=== PATIENT | male | born 1965 | race Caucasian/White ===

== ENCOUNTER 2016-04-18 06:18 | Inpatient (IN) | payer BC ==
[2016-04-17 10:31] VITALS: BMI 28.5
[2016-04-18] VITALS (23 sets, daily range): BP systolic 115–162; BP diastolic 62–95; PULSE 59–96; RESP 6–22; Ht 167.6 cm; Wt 78.3 kg
[~2016-04-18] VITALS: Ht 167.6 cm; Wt 78.3 kg
--- NOTE | 2016-04-18 06:48 | HPN ---
Date/Time of Note Date/Time of Note DATE: 04/18/16 TIME: 06:48 Interval H&P Admission Note Pt. seen H&P reviewed: No system changes CARMEN GANDARA MD Apr 18, 2016 06:48
[2016-04-18] MEDS ORDERED: METF-382 PO (07:20)
[2016-04-18] MEDS ORDERED: OXYC-209 PO (07:20)
[2016-04-18] MEDS ORDERED: DOXY-17 PO (07:20)
[2016-04-18] MEDS ORDERED: SOD CHLORIDE 0.9% 100 ML, TRANEXAMIC ACID 3,000 MG IRR ONE ×2 (07:30)
[2016-04-18] MEDS ORDERED: CEFAZOLIN 2 GM/50 ML (PMX) 50 ML IVPB ONE (07:30)
[2016-04-18] MEDS ORDERED: TRANEXAMIC ACID 1,000 MG in SOD CHLORIDE 0.9% 100 ML IVPB ONE (07:30)
[2016-04-18] MEDS ORDERED: traMADol 50 MG TAB PO ONE (07:30)
[2016-04-18] MEDS ORDERED: GABAPENTIN 300 MG CAP PO ONE (07:30)
[2016-04-18] MEDS ORDERED: DEXAMETHASONE 1 MG TAB PO ONE (07:30)
[2016-04-18] MEDS ORDERED: oxyCODONE (CR) 10 MG TAB [oxyCONTIN] PO ONE (07:30)
[2016-04-18] MEDS ORDERED: POLYMYXIN/BACITRACIN 1L IRRIG ONE (08:36)
[2016-04-18] MEDS ORDERED: BUPIVACAINE 0.5%/EPI (SDV) 30 ML INJ ONE (08:36)
[2016-04-18] MEDS ORDERED: THROMBIN 5000 UNIT VIAL ONE (08:36)
[2016-04-18] MEDS ORDERED: CA CHLORIDE 10% 10 ML SYRINGE ONE (08:37)
[2016-04-18] MEDS ORDERED: morphine SULFATE/PF (10 MG/10 ML) INJ ONE (09:17)
[2016-04-18] MEDS ORDERED: MIDAZOLAM 1 MG/ML 2 ML INJ ONE (09:17)
[2016-04-18] MEDS: BUPIVACAINE 0.5% (SDV) 30 ML, morphine SULFATE (PF) 8 MG, EPINEPHrine 0.3 MG, KETOROLAC... IRR SCH ×14 (09:19→10:03)
[2016-04-18] MEDS ORDERED: hydrALAzine 20 MG INJ ONE (10:16)
[2016-04-18] MEDS ORDERED: morphine 10 MG INJ ONE ×2 (10:27→11:17)
[2016-04-18] MEDS ORDERED: FENTAnyl 50 MCG/ML VIAL IV PRN (10:30)
[2016-04-18] MEDS ORDERED: NALOXONE (0.4 MG/ML) INJ IV PRN (10:30)
[2016-04-18] MEDS ORDERED: DIPHENHYDRAMINE 50 MG INJ IV PRN ×2 (10:30→12:00)
[2016-04-18] MEDS ORDERED: MEPERIDINE 25 MG INJ IV PRN (10:30)
[2016-04-18] MEDS ORDERED: HYDROmorphONE (0.2 MG/ML) 10ML SYG IV PRN ×2 (10:30)
[2016-04-18] MEDS ORDERED: ONDANSETRON 4 MG INJ IV PRN ×2 (10:30→12:00)
[2016-04-18] MEDS ORDERED: LIDOCAINE 2% (SDV) 5 ML INJ ONE (11:50)
[2016-04-18] MEDS ORDERED: PROPOFOL 20 ML ONE (11:50)
[2016-04-18] MEDS ORDERED: ROCURONIUM 50 MG INJ ONE (11:50)
[2016-04-18] MEDS ORDERED: ONDANSETRON 4 MG INJ ONE (11:51)
[2016-04-18] MEDS ORDERED: OXYCODONE/ACETAMINOPHEN (5/325) TAB PO PRN (12:00)
[2016-04-18] MEDS ORDERED: MAGNESIUM HYDROXIDE 30ML CUP PO PRN (12:00)
[2016-04-18] MEDS ORDERED: TRANEXAMIC ACID 1,000 MG in SOD CHLORIDE 0.9% 100 ML IV ONE (12:00)
[2016-04-18] MEDS ORDERED: morphine 4 MG/ML VIAL IV PRN (12:00)
[2016-04-18] MEDS ORDERED: KETOROLAC 15 MG INJ IV PRN (12:00)
[2016-04-18] MEDS ORDERED: ACETAMINOPHEN 500 MG TAB PO PRN (12:00)
[2016-04-18] MEDS ORDERED: morphine 2 MG INJ IV PRN (12:00)
[2016-04-18] MEDS ORDERED: ZOLPIDEM 5 MG TAB PO PRN (12:00)
[2016-04-18] MEDS ORDERED: BETHANECHOL 25 MG TAB PO PRN (12:00)
--- NOTE | 2016-04-18 12:16 | PDOCDIS ---
Discharge Instructions DIAGNOSIS Discharge Diagnosis: HIp arthritis CONDITION Patient Condition: Good HOME CARE INSTRUCTIONS: Diet Instructions: Regular ACTIVITY: Activity Restrictions: Slowly Increase Activity Keep Limb Elevated Bathing Restrictions: Shower FOLLOW UP/APPOINTMENTS Appointments 2 weeks SCHOOL/WORK RELEASE May return to School/Work with: With Restrictions School/Work Release Comment: No extension for six weeks CARMEN GANDARA MD Apr 18, 2016 12:16
--- NOTE | 2016-04-18 12:31 | RADRPT ---
PROCEDURE: Pelvis x-ray CLINICAL INDICATION: S/p Total hip replacement TECHNIQUE: Single AP view of the pelvis performed. COMPARISON: None FINDINGS: Intact old right hip prosthesis in anatomic alignment. Normal articulation of the femoral S10 as pr osthetic components. Intact acetabular support screw without lucency surrounding the screw to sugge st loosening or osteolysis. The left hip, pelvis, and sacrum are intact. No soft tissue abnormalit y. IMPRESSION: Intact right total hip prosthesis with anatomic alignment. No evidence of hardware failure or dislo cation. RPTAT:AAJJ Physician Jacklyn Date Time Electronically viewed and signed by Physician Jacklyn on 04/18/2016 12:31 CARLOS/
[2016-04-18 12:40] LABS: BASOPHILS % 0.1 % (0.0-2.0); HEMATOCRIT 39.2 % (42.0-52.0); HEMOGLOBIN 13.1 g/dl (14.0-18.0); LYMPHOCYTES # 1.4 10^3/ul (0.8-2.9); LYMPHOCYTES % 6.7 % (15.0-51.0); MEAN CORPUSCULAR HEMOGLOBIN 30.3 pg (29.0-33.0); MEAN CORPUSCULAR HGB CONC 33.5 g/dl (32.0-37.0); MEAN CORPUSCULAR VOLUME 90.5 fl (82.0-101.0); MEAN PLATELET VOLUME 8.2 fl (7.4-10.4); MONOCYTE # 0.6 10^3/ul (0.3-0.9); MONOCYTES % 2.9 % (0.0-11.0); NEUTROPHILS % 90.3 % (39.0-77.0); PLATELET COUNT 292 10^3/UL (140-440); RED BLOOD COUNT 4.33 10^6/ul (4.70-6.10); RED CELL DISTRIBUTION WIDTH 13.2 % (11.5-14.5)
--- NOTE | 2016-04-18 12:48 | RADRPT ---
PROCEDURE: Intraoperative imaging of the right hip with fluoroscopy. CLINICAL INDICATION: Right hip pain. Intraoperative. TECHNIQUE: 7 images of the right hip were obtained in the operating room with an image intensifier . No radiologist was in attendance. 0.5 of fluoroscopy time was used. COMPARISON: No prior study is available for comparison. FINDINGS: Images demonstrate placement of a total right hip arthroplasty. IMPRESSION: 1. Satisfactory intraoperative imaging of the right hip. RPTAT: QQ .Agustin Dennis MD, MD Date Time Electronically viewed and signed by .Agustin Dennis MD, MD on 04/18/2016 12:48 .R/
[2016-04-18 12:49] LABS: CONDITION 1; LH ANALYZER COMMENTS 1; SUSPECT 1
[2016-04-18] MEDS: DEXAMETHASONE 2 MG TAB PO SCH ×3 (12:57→23:15)
[2016-04-18] MEDS: LACTATED RINGER'S 1,000 ML IV SCH ×2 (13:34→21:42)
--- NOTE | 2016-04-18 13:49 | OPR ---
DATE OF OPERATION: 04/18/2016 PREOPERATIVE DIAGNOSIS: Right hip primary osteoarthritis. POSTOPERATIVE DIAGNOSIS: Right hip primary osteoarthritis. OPERATION PERFORMED: Right total hip arthroplasty. SURGEON: Carmen Mcnamara MD APPLICATION SPEC: Jethro Bustillos MD. [employer] Operator surgeon, Jethro Bustillos MD, was asked to be present at my request as a result of significan t surgical complexity associated with this procedure, including positioning of the extremity, manipu lation and protection of the neurovascular structures. In my opinion, the assistance offered by a [facility] sports medicine[facility] technical support technician is insufficient and Dr. Bustillos should be compensated for his time. PROCEDURE IN DETAIL: Following administration of general anesthesia supplemented with a spinal anes thetic, the patient was placed supine on the standard table. Fluoroscopic imaging was obtained to o btain preliminary information with respect to limb length. Sterile prep and drape was then undertaken. A lateral incision then exposed the tensor. The tensor muscle was retracted laterally. The capsule and the vasculature were then ablated followed by a lo ngitudinal capsulotomy. The joint was then evaluated. Severe arthritis was noted. The femoral cu t was made in the appropriate degree of version and inclination. The acetabulum was exposed. Peripheral osteophytes were removed. Capsulectomy was completed and th e acetabulum was reamed up to the 55 mm size. A 56 mm DePuy [place] cup was then implanted with a 35 mm screw. Solid fixation was obtained. A standard liner was implanted. Attention was then directed back to the femur. The femoral shaft was reamed up to the 11 mm size. An 11 mm DePuy [place] component was then implanted with a standard neck and a +5 zirconium head. Ra diographs revealed about a 2 mm limb length discrepancy with the cup being at approximately 42 degre es of abduction and 21 degrees of anteversion. The hip was taken through a full range of motion wit h no instability. The joint was thoroughly irrigated, closed in layers. A Prineo dressing was appl ied for the final layer. The patient was then awakened, transported to recovery in stable condition . Estimated blood loss for this procedure was 400 mL. Postoperative x-rays will be obtained in the recovery room, as well as a H and H will be obtained in the recovery room. Dictated By: CARMEN DE LA FUENTE/NTS Conf#: [id number] [facility]#: [id number]
[2016-04-18] MEDS: CEFAZOLIN 1 GM/50 ML (PMX) 50 ML IVPB SCH ×2 (15:47→23:15)
[2016-04-18] MEDS: metFORMIN 500 MG TAB PO SCH (17:30)
[2016-04-18] MEDS: SENNA/DOCUSATE NA (8.6MG/50MG) TAB PO SCH (20:19)
[2016-04-18] MEDS ORDERED: GABAPENTIN 300 MG CAP PO SCH (21:00)
[2016-04-18] MEDS: OXYCODONE/ACETAMINOPHEN (5/325) TAB PO PRN (23:16)
[2016-04-19] MEDS: DEXAMETHASONE 2 MG TAB PO SCH (04:57)
[2016-04-19] MEDS: OXYCODONE/ACETAMINOPHEN (5/325) TAB PO PRN ×2 (04:58→09:55)
[2016-04-19 05:41] VITALS: BP 136/86; PULSE 81
[2016-04-19 05:48] LABS: HEMATOCRIT 34.4 % (42.0-52.0); HEMOGLOBIN 11.7 g/dl (14.0-18.0); LYMPHOCYTES % 6.3 % (15.0-51.0); MEAN CORPUSCULAR HEMOGLOBIN 30.9 pg (29.0-33.0); MEAN PLATELET VOLUME 8.8 fl (7.4-10.4); MONOCYTE # 0.8 10^3/ul (0.3-0.9); MONOCYTES % 5.3 % (0.0-11.0); NEUTROPHIL # 13.9 10^3/ul (1.6-7.5); NEUTROPHILS % 88.4 % (39.0-77.0); PLATELET COUNT 245 10^3/UL (140-440); RED BLOOD COUNT 3.78 10^6/ul (4.70-6.10); RED CELL DISTRIBUTION WIDTH 13.3 % (11.5-14.5); UNCORRECTED WBC 15.8 10^3/ul (4.8-10.8); WHITE BLOOD COUNT 15.8 10^3/ul (4.8-10.8)
[2016-04-19 06:44] LABS: CONDITION 1
--- NOTE | 2016-04-19 06:53 | PN ---
Date/Time of Note Date/Time of Note DATE: 04/19/16 TIME: 06:51 24 hour Interval Summary Patient is very comfortable with minimal to no pain. Yu catheter has been removed. Physical examination: His wound is clean and dry he is neurologically intact there are no signs of DVT. There is no swelling around the wound. Assessment: Status post total hip replacement Plan: He will be cleared by physical therapy, following that, he may go home. Hemoglobin is 11.7 and hematocrit is 34.4, the patient has no clinical signs as a result. Physical Exam Vital Signs Date Time Temp Pulse Resp B/P Pulse Ox O2 Delivery O2 Flow Rate FiO2 04/19/16 05:41 97.9 81 136/86 98 Room Air 04/18/16 23:30 2.0 04/18/16 19:43 20 Intake and Output 04/18/16 04/18/16 04/19/16 15:00 23:00 07:00 Intake Total 1200 ml 1020 ml 1750 ml Output Total 450 ml 475 ml 1600 ml Balance 750 ml 545 ml 150 ml VTE Prophylaxis VTE Prophylaxis Intervention: anti-embolic stocking, other Lines/Catheters IV Catheter Type: Saline Lock Yu in Place: No Results Result Diagram: 04/19/16 0430 Results 24hrs Laboratory Tests Test 04/18/16 07:19 04/18/16 12:35 04/19/16 04:30 Bedside Glucose 144 Basophils # 0.0 0.0 Basophils % 0.1 0.0 Eosinophils # 0.0 0.0 Eosinophils % 0.0 0.0 Hematocrit 39.2 L 34.4 L Hemoglobin 13.1 L 11.7 L Lymphocytes # 1.4 1.0 Lymphocytes % 6.7 L 6.3 L Mean Corpuscular Hemoglobin 30.3 30.9 Mean Corpuscular Hemoglobin Concent 33.5 34.0 Mean Corpuscular Volume 90.5 91.0 Mean Platelet Volume 8.2 8.8 Monocytes # 0.6 0.8 Monocytes % 2.9 5.3 Neutrophils # 19.0 H 13.9 H Neutrophils % 90.3 H 88.4 H Nucleated Red Blood Cells # 0.0 0.0 Nucleated Red Blood Cells % 0.0 0.0 Platelet Count 292 245 Red Blood Count 4.33 L 3.78 L Red Cell Distribution Width 13.2 13.3 White Blood Count 21.0 H 15.8 #H Medications Medications Home Meds Reported Medications Doxycycline* (Vibramycin*) 100 Mg Capsule, 100 MG PO BID, EA 04/18/16 Metformin Hcl* (Metformin Hcl*) 500 Mg Tablet, 500 MG PO BID, #30 TAB 04/18/16 Oxycodone HCl/Acetaminophen (Percocet 10-325 mg Tablet) 1 Each Tablet, 1 EACH PO , TAB 04/18/16 CARMEN GANDARA MD Apr 19, 2016 06:53
--- NOTE | 2016-04-19 06:54 | DS ---
Date/Time of Note Date/Time of Note DATE: 04/19/16 TIME: 06:53 Discharge Summary Admission/Discharge Info Admit Date/Time Apr 18, 2016 at 06:18 Discharge Date/Time April 19, 2016 following clearance by physical therapy Final Diagnosis Right hip osteoarthritis Patient Condition: Good Procedures Right total hip replacement Hx of Present Illness Pain and stiffness in the right hip Hospital Course Surgery, followed by therapy, followed by discharge home Home Meds Reported Medications Doxycycline* (Vibramycin*) 100 Mg Capsule, 100 MG PO BID, EA 04/18/16 Metformin Hcl* (Metformin Hcl*) 500 Mg Tablet, 500 MG PO BID, #30 TAB 04/18/16 Oxycodone HCl/Acetaminophen (Percocet 10-325 mg Tablet) 1 Each Tablet, 1 EACH PO , TAB 04/18/16 Follow-up Plan 2 weeks Pending Labs Laboratory Tests Test 04/18/16 07:19 04/18/16 12:35 04/19/16 04:30 Bedside Glucose 144mg/dL (70-220) Basophils # 0.010^3/ul (0.0-0.1) 0.010^3/ul (0.0-0.1) Basophils % 0.1% (0.0-2.0) 0.0% (0.0-2.0) Eosinophils # 0.010^3/ul (0.0-0.5) 0.010^3/ul (0.0-0.5) Eosinophils % 0.0% (0.0-7.0) 0.0% (0.0-7.0) Hematocrit 39.2% (42.0-52.0) 34.4% (42.0-52.0) Hemoglobin 13.1g/dl (14.0-18.0) 11.7g/dl (14.0-18.0) Lymphocytes # 1.410^3/ul (0.8-2.9) 1.010^3/ul (0.8-2.9) Lymphocytes % 6.7% (15.0-51.0) 6.3% (15.0-51.0) Mean Corpuscular Hemoglobin 30.3pg (29.0-33.0) 30.9pg (29.0-33.0) Mean Corpuscular Hemoglobin Concent 33.5g/dl (32.0-37.0) 34.0g/dl (32.0-37.0) Mean Corpuscular Volume 90.5fl (82.0-101.0) 91.0fl (82.0-101.0) Mean Platelet Volume 8.2fl (7.4-10.4) 8.8fl (7.4-10.4) Monocytes # 0.610^3/ul (0.3-0.9) 0.810^3/ul (0.3-0.9) Monocytes % 2.9% (0.0-11.0) 5.3% (0.0-11.0) Neutrophils # 19.010^3/ul (1.6-7.5) 13.910^3/ul (1.6-7.5) Neutrophils % 90.3% (39.0-77.0) 88.4% (39.0-77.0) Nucleated Red Blood Cells # 0.010^3/ul (0.0-0.0) 0.010^3/ul (0.0-0.0) Nucleated Red Blood Cells % 0.0/100WBC (0.0-0.0) 0.0/100WBC (0.0-0.0) Platelet Count 53014^3/UL (140-440) 14648^3/UL (140-440) Red Blood Count 4.3310^6/ul (4.70-6.10) 3.7810^6/ul (4.70-6.10) Red Cell Distribution Width 13.2% (11.5-14.5) 13.3% (11.5-14.5) White Blood Count 21.010^3/ul (4.8-10.8) 15.810^3/ul (4.8-10.8) CARMEN GANDARA MD Apr 19, 2016 06:54
[2016-04-19] MEDS: LACTATED RINGER'S 1,000 ML IV SCH (07:42)
[2016-04-19 08:00] VITALS: BP 127/72; RESP 20
[2016-04-19] MEDS: CEFAZOLIN 1 GM/50 ML (PMX) 50 ML IVPB SCH (08:00)
[2016-04-19] MEDS: SENNA/DOCUSATE NA (8.6MG/50MG) TAB PO SCH (08:00)
[2016-04-19] MEDS: metFORMIN 500 MG TAB PO SCH (08:00)
[2016-04-19] MEDS ORDERED: INFLUENZA VIRUS VACCINE 0.5 ML (DISPENSING) IM* ONE (09:00)
[2016-04-19] MEDS ORDERED: ASPIRIN 81 MG TAB PO SCH (09:00)
[2016-04-19] MEDS ORDERED: CALCIUM CARBONATE 500 MG CHEW TAB PO ONE (11:30)
== END 2016-04-19 11:45 | disposition home or self-care (01) | DRG 470 ==
LOC: REC 06:18 → MS1 13:04
PROVIDERS: ADMIT Orthopaedic Surgery; ATTEND Orthopaedic Surgery
PROC: 0SR904A Replacement of Right Hip Joint with Ceramic on Polyethylene Synthetic Substitute, Uncemented, Open Approach (ICD-10-PCS; principal; 2016-04-18 09:30)
DX: M16.11 Unilateral primary osteoarthritis, right hip (principal); Z72.0 Tobacco use
CPT/HCPCS: 72170; 73530; 82962; 85025; 86999; 87086; 90686; 97116; 97163; 97530; Z7610; C1713; C1776; J0171; J0360; J0690; J0735; J1885; J2250; J2270; J2274; J2405; J3010; J3370; J7120